=== PATIENT | female | born 1955 | race Caucasian/White ===

== ENCOUNTER 2019-09-04 21:29 | Inpatient (IN) | payer BC ==
[~2019-09-04] VITALS: Ht 180.3 cm; Wt 120.4 kg
[2019-09-04 21:51] VITALS: Ht 180.3 cm; Wt 120.4 kg
--- NOTE | 2019-09-04 21:56 | NUR ---
PT BIB [facility] AND PLACED IN BED. PT AAOX4 WITH C/O 5/10 GENERALIZED ABD PAIN WITH N/V X 2 DAYS. PT STATES SHE HAD A LITHROTRIPSY PROCEDURE DONE ON 08/25 WELL QUIT TAKING METHADONE ON 08/27. PT DENIES ANY INJURY/TRUAMA. PT DENIES ANY DIARRHEA/CONSTIPATION, FEVER, RESP ILLNESS OR URINARY PROBLEMS AT THIS TIME. NO SIGNS OF DISTRESS.
--- NOTE | 2019-09-04 22:28 | NUR ---
PT RESTING IN BED WITH C/O RETURNING NAUSEA.
[2019-09-04 23:22] LABS: UA SPECIFIC GRAVITY >=1.030 (1.005-1.035); microscopic required? YES; urine erythrocyte 3+ (NEGATIVE)
[2019-09-04 23:27] LABS: RED CELL DISTRIBUTION WIDTH 14.3 % (11.5-14.5)
[2019-09-04 23:30] LABS: BASOPHIL % 0 % (0-2); PLATELET COUNT 428 x10^3mcL (130-400)
[2019-09-04 23:58] LABS: CALCIUM 9.4 mg/dL (8.5-10.1); CARBON DIOXIDE 31.6 mmol/L (21-32); CREATININE SERUM 1.2 mg/dL (0.6-1.0)
[2019-09-05] VITALS (8 sets, daily range): BP systolic 121–200; BP diastolic 58–99
--- NOTE | 2019-09-05 | NUR ---
PT WITH C/O N/V. WILL MEDICATE PER EMAR.
[2019-09-05 00:05] LABS: ALBUMIN 3.8 g/dL (3.4-5.0); BILIRUBIN TOTAL 0.4 mg/dL (0.20-1.00)
[2019-09-05] MEDS ORDERED: SYNTHROID0.075 MG PO (00:45)
--- NOTE | 2019-09-05 00:45 | NUR ---
PT NOTED WITH BP 200'S/90'S. DR FRANCO MADE AWARE.
[2019-09-05] MEDS ORDERED: COZAAR100 MG PO (00:46)
[2019-09-05 01:30] LABS: CHOLESTEROL/HDL RATIO 4.1
--- NOTE | 2019-09-05 01:41 | NUR ---
REPORT GIVEN TO MARCO TOLLIVER.
--- NOTE | 2019-09-05 04:24 | NUR ---
@ 0150 ADMITTED 64 YR OLD FEMALE FR ER VIA [employer].A/A/O X4. C/O N/V X3 DAYS GIVING OFFICER.PEER PT QUIT TAKING HER METHADONE 08/28/19." STATED ONMETHADONE FOR 20 YRS FOR HER BACK PAIN.DENIES SOB.DENIES CP @ THIS TIME. O2 SAT ON RA 96%. TELE SHOWED SR.ORIENTED TO HER ROOM,BED CONTROL,CALL LIGHT;WITHIN REACH.
--- NOTE | 2019-09-05 04:33 | NUR ---
@ 0150 MD WAS CALLED RE; LACTIC ACID 2.7.
--- NOTE | 2019-09-05 04:34 | NUR ---
@ 0327 IVF NS @ 100 ML/HR INFUSING WELL ON HER LAC STARTED.
--- NOTE | 2019-09-05 04:36 | NUR ---
@ 0348 C/O NAUSEA.ZOFRAN IV ADM. HYDRALAZINE IV ADM BP 200/99,PR69.TELE SHOWED SR.
[2019-09-05 06:02] LABS: CALCIUM 9.2 mg/dL (8.5-10.1); CARBON DIOXIDE 31.7 mmol/L (21-32); CREATININE SERUM 1.3 mg/dL (0.6-1.0); MAGNESIUM 2.4 mg/dL (1.8-2.4); PHOSPHOROUS 3.3 mg/dL (2.5-4.9); POTASSIUM SERUM 3.2 mmol/L (3.5-5.1)
--- NOTE | 2019-09-05 07:02 | NUR ---
@ 7345 ATIVAN 1 MG IV ADM. AWARE.
--- NOTE | 2019-09-05 07:03 | NUR ---
ENDORSED RESTING COMFORTABLY IN NO ACUTE DISTRESS.TELE SHOWED SR. IVF INFUSING WELL.CALL LIGHT WITHIN REACH.SAFETY MAINTAINED.
[2019-09-05 08:43] LABS: AMPHETAMINE QUAL UR NONE DETECTED (See below)
--- NOTE | 2019-09-05 18:57 | NUR ---
Pt is awake and alert x4. vitals are stable. pt has nasea and was given prn zofran at 1115 and 1530. pt vomited x1. 500ml bolus of NS given. Rocephin IV started at 1700.pt is on a clear liquid diet. Daughter updated on the phone regarding pt status. all interventions carried out per protocol.
[2019-09-06] VITALS (7 sets, daily range): BP systolic 99–191; BP diastolic 48–83
--- NOTE | 2019-09-06 01:55 | NUR ---
@ 2000 RESTING COMFORTABLY IN NO ACUTE DISTRESS.IVF NS @ 150 ML/HR INFUSING WELL.
--- NOTE | 2019-09-06 01:57 | NUR ---
@ 2049 WOKE UP & C/O NAUSEA." STATED SOMETHING IS CRAWLING IN HER BODY."
--- NOTE | 2019-09-06 02:05 | NUR ---
@ 1677 [facility] IV ADM.
--- NOTE | 2019-09-06 02:06 | NUR ---
@ 2130 FOUND RESTING COMFORTABLY POST ATIVAN IV.IVF INFUSING WELL.
--- NOTE | 2019-09-06 02:07 | NUR ---
@ 3892 C/O NAUSEA. REGLAN IV ADM.
--- NOTE | 2019-09-06 02:08 | NUR ---
@ 0200 ASLEEP.IN NO ACUTE DISTRESS.CALL LIGHT WITHIN REACH.
--- NOTE | 2019-09-06 03:57 | NUR ---
@ 0315 IV INFILTRATED & D/C.IV INSERTED ON HER LEFT HAND WITH ANGIO # 22 X1. IVF NS @ 150 ML/HR INFUSING WELL.
--- NOTE | 2019-09-06 06:45 | NUR ---
ENDORSED RESTING COMFORTABLY IN NO ACUTE DISTRESS.IVF INFUSING WELL.CALL LIGHT WITHIN REACH.SAFETY MAINTAINED.
[2019-09-06 08:24] LABS: BASOPHIL % 0.2 % (0-2); RED CELL DISTRIBUTION WIDTH 14.2 % (11.5-14.5)
[2019-09-06 08:28] LABS: CALCIUM 8.2 mg/dL (8.5-10.1); CARBON DIOXIDE 28.8 mmol/L (21-32); CHLORIDE SERUM 104 mmol/L (98-107); CREATININE SERUM 0.9 mg/dL (0.6-1.0); GFR1 > 60 mL/min; GLUCOSE SERUM 121 mg/dL (74-106); PHOSPHOROUS 2.1 mg/dL (2.5-4.9); POTASSIUM SERUM 3.3 mmol/L (3.5-5.1); SODIUM SERUM 142 mmol/L (136-145)
[2019-09-06 08:39] LABS: PLATELET COUNT 401 x10^3mcL (130-400)
--- NOTE | 2019-09-06 14:11 | NUR ---
PT IS ALERT AND ORIENTED X4 AND NO DISTRESS NOTED. CLEAN CATCH URIN SPECIMIN COLLECTED ON 09/03 CAME BACK SHOWING POSITIVE GRAM COCCI BUT SUSCEPTABILITY NOT YET DETERMINED. ON TELE NUMBER 4 AND IN NSR. SHE IS STILL ON A CLEAR LIQUID DIET. IV PATENT AND RUNING WELL. PT COMPLAINED OF ANXIETY AT 0945 SO PRN ATIVAN 1MG ADMINISTERED PER PROTOCOL AND TO GOOD EFFECT. PT COMPLAINED OF NASEA AT 1146 SO PRN ZOFRAN ADMINISTERED PER PROTOCOL. I CONTACTED [facility] [address] REGARDING MISS ZEPEDA MISSING ITEMS FROM THE ER, AND WAS TOLD THAT [employer] THE [employer] PROGRAMMER ANALYST HAS THEM AND A MESSEGE WAS SENT TO HIM BY [facility]. ALL INTERVENTIONS CARRIED OUT PER PROTOCOL WITH NO SIGNIFICANT CHANGES IN PT STATUS NOTED. WILL CONTINUE TO MONITOR.
--- NOTE | 2019-09-06 14:55 | NUR ---
PT COMPLAINED OF MORE NASEA SO PRN REGLAN IV ADMINISTERED PER PROTOCOL.
[2019-09-07 05:25] VITALS: BP 147/69
[2019-09-07 07:16] LABS: CALCIUM 8.4 mg/dL (8.5-10.1); CARBON DIOXIDE 28.3 mmol/L (21-32); CHLORIDE SERUM 104 mmol/L (98-107); CREATININE SERUM 0.8 mg/dL (0.6-1.0); GFR1 > 60 mL/min; GLUCOSE SERUM 104 mg/dL (74-106); SODIUM SERUM 143 mmol/L (136-145)
[2019-09-07 07:26] LABS: POTASSIUM SERUM 2.9 mmol/L (3.5-5.1)
[2019-09-07 07:38] LABS: BASOPHIL % 0.4 % (0-2); PLATELET COUNT 361 x10^3mcL (130-400); RED CELL DISTRIBUTION WIDTH 14.4 % (11.5-14.5)
--- NOTE | 2019-09-07 07:53 | NUR ---
AT 0710 - RECEIVED PATIENT FROM NIGHT NURSE. AWAKE, ALERT AND ORIENTED. IV INFUSING NS AT 150 ML/HR. NO N/V AT THIS TIME. PATIENT IS ON CLEAR LIQUID DIET. AT 0726 - RECEIVED CALL FROM LAB WITH K+ 2.9. AT 0741 - RECEIVED CALL FROM LAB WITH WBC OF 15. NOT REPORTED THIS IS A DOWNWARD TREND. K+ LEVEL WILL BE CORRECTED. PATIENT HAS ORDER FOR K-RIDER AND PO KCL.
--- NOTE | 2019-09-07 08:19 | NUR ---
SPOKE WITH PATIENT. SHE WANTS TO BE DISCHARGED HOME. INFORMED OF LOW K+ LEVEL AND NEED TO REPLACE WITH IV K-RIDER. DENIES ANY NAUSEA AT THIS TIME BUT DOES NOT WANT CLEAR LIQUIDS PO - SAYS THAT THEY "JUST GO THROUGH HER".
[2019-09-07 08:40] VITALS: BP 177/63
[2019-09-07] MEDS ORDERED: HYDRALAZINE HCL10 MG PO (11:15)
[2019-09-07] MEDS ORDERED: BLOOD PRESSURE MC (11:17)
[2019-09-07 12:19] VITALS: BP 172/70
--- NOTE | 2019-09-07 14:15 | NUR ---
AT 0920 - COMMENCED 40 MEQ K-RIDER FOR K+ LEVEL OF 2.9. HAS ALSO BEEN GIVEN 40 MEQ KCL PO. PATIENT C/O ANXIETY, REQUESTING MEDICATION. MEDICATED WITH ATIVAN 1MG PER EMAR. AT 1030 - SLEEPING. K-RIDER INFUSING. AT 1400 - RECEIVED CALL FROM PATIENT'S SON, JULIUS. PATIENT INFORMED. FOR DISCHARGE HOME TODAY. K-RIDER COMPLETED.
--- NOTE | 2019-09-07 14:46 | NUR ---
IV CATHETER REMOVED INTACT. PATIENT TAKEN OFF CARDIAC MONITORING. PREPARED FOR DISCHARGE. SPOKE WITH NURSING DRAW TENDER REGARDING PATIENT'S WALLET AND TELEPHONE WHICH WAS REPORTED TO HAVE BEEN PLACED WITH NURSING DRAW TENDER AT TIME OF ADMISSION. SHE WAS UNABLE TO FIND IT EVEN AFTER CALLING THE GRAIN SHOVELER WHO IS MENTIONED IN PATIENT CARE NOTES. SHE ALSO CHECKED WITH [employer] [employer] AND FOUND. THEY DO NOT HAVE THE BELONGINGS. PATIENT IS AWARE OF THIS.
--- NOTE | 2019-09-07 15:32 | NUR ---
AT 1510 - PRINTED DISCHARGE INSTRUCTIONS GIVEN AND EXPLAINED TO PATIENT. ELECTRONIC PRESCRIPTION HAS BEEN RECEIVED BY PATIENT'S PREFERRED PHARMACY. THE REPORTED MISSING WALLET AND PHONE WERE NOT LOCATED BY THE TIME PATIENT WAS DISCHARGED. MACHINE DESIGN CHECKER WAS MADE AWARE BY COPY COORDINATOR. AT 1525 - DISCHARGED HOME WITH SON. TAKEN TO CAR IN WHEELCHAIR BY NURSE.
--- NOTE | 2019-09-07 16:22 | NUR ---
Initial Nutrition Assessment: [address] CHRISTOPHER RHODES 64F HR Nursing triggers: unintentional weight loss, poor PO intake > 3days, unable to ingest food for age Dx: intractable vomiting, opium overdose, UTI PMHx: Hypothyroidism, HTN PSHx: none noted Labs: (09/06) WBC 15H, K 2.9L, BUN 6L, Clacium 8.4L, (09/05) Phosphorus 2.1L Meds: Colace, Cozaar, KCL, Rocephin, sodium chloride, Synthroid PRN meds: Ativan, Hydralazine, [place], Reglan, Tylenol, Zofran Diet: Regular PO intake since admission: 20-90% x 3 meals with average PO intake of 57% Ht: 180.34cm/71in Wt: 120.372kg/264.8lbs BMI: 37 Bed scale: 123kg/271.3lbs IBW: 70.45kg/155lbs %IBW: 170.9% ABW: 83kg UBW: 260lbs per pt Age: 64 Food Allergies: NKFA per pt Edema: none noted Last BM: 09/05 Skin: skin intact Jozef: 18 Per H and P (09/04), Patient is a 66-year-old female with pmhx of htn and hypothyroidism comes to ED for nausea and vomiting. Patient states that she has been having these symptoms for past week, ever since she abruptly stopped her methadone. She was using methadone for 20 years for her back pain, but didnt want to continue with it hence decided to stop taking it. She has vomitted 4-5 times today. She has food intolerance and has not been eating because she throws up whenever she eats. She also has insomnia, and has not slept in last 3 days. She denies any other associated symptoms, denies fever, cough, chest pain, constipation, diarrhea. Pt was admitted with dx: uncomplicated UTI, intractable vomiting d/t methadone withdrawal, vasomotor nephropathy, hypertension urgency, morbid obese RD Note (09/06) Pt was seen lying in bed during bedside visit. Pt reported not eating solid food for a while. Per pt, she had good appetite, and she was tolerating diet with no GI distress or chewing/swallowing difficulty. Pt denied recent weight changes and reported usual weight being 260lbs one month ago. Pt reported taking vitamin D at home, and she did not follow a special diet at home. Per observation, pt finished approximately 50% of her lunch tray, and pt's diet was advance to regular diet. Problem with: N/V/D/C: none per pt Problems with: Chewing: Swallowing: None per pt Current appetite: good per pt Recent wt change: none per pt %wt change: 4.8lbs weight gain per weight reported by pt Height: 5'11" Vitamin/Supplement use: vitamin D Special diet at home: none per pt Physical activity: swimming per pt Nutrition education given (specify specific nutrition education and handout given): Education on low sodium diet was provided to pt. Pt said that she did not cook with salt, and she tried to avoid canned products. Written education was provided to pt as a refresher, and pt accepted education. Food-drug interactions? Education given? n/a Estimated Nutritional Needs Based on adjusted body weight (83kg) Energy: 2053-4352 kcal/day (20-25 kcal/kg for weight reduction) Protein: 83-99 g/day (1-1.2 for lean body mass preservation) Fluid: 1301-2128 mL/day (1 mL/kcal) Nutrition Diagnosis: 1. Obese class II r/t pathophysiological cause a/e/b pt BMI > 35 (BMI=37 on 09/06). Intervention 1. Recommend continue regular diet as tolerate 2. RD will implement ONS for diet if pt PO intake meets < 75% of estimated needs upon follow up. Monitor/Evaluate Goal: PO intake at least 75% of estimated needs Monitor: PO intake, Labs, GI function, Body weight F/U in 3-5 days as moderate risk09/09-09/11
== END 2019-09-07 15:19 | disposition home or self-care (01) | DRG 640 ==
LOC: ED 21:29 → DU 09-05 00:46
PROVIDERS: Emergency Medicine; ADMIT Internal Medicine; ATTEND Internal Medicine
DX: E86.0 Dehydration (principal); N17.0 Acute kidney failure with tubular necrosis; N39.0 Urinary tract infection, site not specified; I10 Essential (primary) hypertension; E03.9 Hypothyroidism, unspecified; I16.0 Hypertensive urgency; E66.01 Morbid (severe) obesity due to excess calories; E87.6 Hypokalemia; Z88.1 Allergy status to other antibiotic agents; Z87.891 Personal history of nicotine dependence; Z68.34 Body mass index [BMI] 34.0-34.9, adult; Z79.899 Other long term (current) drug therapy
CPT/HCPCS: G0378; J0360; J0696; J1200; J2060; J2405; J2765; J3480; J3490; J7030; J7040; J7060; Q0092; Q0162